=== PATIENT | female | born 1995 | race Caucasian/White ===

== ENCOUNTER 2021-12-22 17:02 | Inpatient (IN) | payer OTHER ==
[~2021-12-22] VITALS: Ht 175.3 cm; Wt 70.8 kg
[~2021-12-22 17:02] MED LIST: PRENATAL VITAM1 EAC8 PO
[2021-12-22 17:56] LABS: HEMOGLOBIN 10.2 gm/dl (12.3-15.3); RED BLOOD COUNT 4.41 M/UL (4.00-5.10); WHITE BLOOD COUNT 11.6 K/UL (4.5-11.0)
[2021-12-23] MEDS ORDERED: COLACE100 MG PO (04:53)
[2021-12-23] MEDS ORDERED: IBUPROFEN600 MG PO (04:53)
[2021-12-23] MEDS ORDERED: FERROUS SULFAT325 MG PO (04:53)
[2021-12-24 04:31] LABS: HEMOGLOBIN 8.8 gm/dl (12.3-15.3)
== END 2021-12-24 17:39 | disposition home or self-care (01) | DRG 807 ==
LOC: GENOP 17:02 → OB 17:29
PROVIDERS: Obstetrics & Gynecology; ADMIT Obstetrics & Gynecology
PROC: 10907ZC Drainage of Amniotic Fluid, Therapeutic from Products of Conception, Via Natural or Artificial Opening (ICD-10-PCS; 2021-12-22)
PROC: 4A1HXCZ Monitoring of Products of Conception, Cardiac Rate, External Approach (ICD-10-PCS; 2021-12-22)
PROC: 10E0XZZ Delivery of Products of Conception, External Approach (ICD-10-PCS; principal; 2021-12-23)
PROC: 0KQM0ZZ Repair Perineum Muscle, Open Approach (ICD-10-PCS; 2021-12-23)
PROC: 3E0234Z Introduction of Serum, Toxoid and Vaccine into Muscle, Percutaneous Approach (ICD-10-PCS; 2021-12-23)
DX: O24.420 Gestational diabetes mellitus in childbirth, diet controlled (principal); Z37.0 Single live birth; Z3A.38 38 weeks gestation of pregnancy; Z20.822 Contact with and (suspected) exposure to COVID-19; Z28.310 Unvaccinated for COVID-19; Z88.1 Allergy status to other antibiotic agents; Z83.3 Family history of diabetes mellitus; Z82.49 Family history of ischemic heart disease and other diseases of the circulatory system; Z83.6 Family history of other diseases of the respiratory system; Z82.0 Family history of epilepsy and other diseases of the nervous system; Z23 Encounter for immunization; O70.1 Second degree perineal laceration during delivery; O62.2 Other uterine inertia
CPT/HCPCS: 36415; 81001; 82962; 83518; 85014; 85018; 85025; 85461; 86850; 86900; 86901; 90715; C9113; J2210; J2405; J2590; J2790; U0002